=== PATIENT | female | born 1940 | race Caucasian/White ===

== ENCOUNTER 2023-02-17 21:25 | Emergency (ER) | payer OTHER, MEDICAID ==
[~2023-02-17] VITALS: Ht 167.6 cm; Wt 65.8 kg
[2023-02-17 22:10] VITALS: BP_SYST 143; PULSE 90; RESP 18; TEMP 98.2; O2SAT 97
[2023-02-17 22:40] LABS: BILIRUBIN,URINE NEGATIVE (NEGATIVE); BLOOD, URINE 3+ (NEGATIVE); CLARITY/URINE CLOUDY (CLEAR); COLOR,URINE YELLOW (YELLOW); GLUCOSE,URINE NEGATIVE (NEGATIVE); KETONES,URINE NEGATIVE (NEGATIVE); LEUKOCYTE ESTERASE ,URINE 3+ (NEGATIVE); NITRITE, URINE NEGATIVE (NEGATIVE); PROTEIN URINE 2+ (NEGATIVE); UROBILINOGEN,URINE 0.2 (0.2-1.0)
[2023-02-17 22:51] LABS: BACTERIA,URINE MODERATE /HPF (None Seen); RBC,URINE 50-80 /HPF (0-3); WBC,URINE 20-50 /HPF (0-3)
[2023-02-17 23:12] LABS: BASOPHILS # (AUTO) 0.1 K/uL (0.0-0.2); BASOPHILS % (AUTO) 0.6 % (0.0-2.0); EOSINOPHILS # (AUTO) 0.2 K/uL (0.0-0.4); EOSINOPHILS % (AUTO) 1.8 % (0.0-4.0); HEMATOCRIT 42.7 % (36-48); HEMOGLOBIN 13.8 g/dL (12.0-16.0); LYMPHOCYTES # (AUTO) 1.8 K/uL (1.0-5.5); LYMPHOCYTES % (AUTO) 16.4 % (20.5-51.5); MEAN CORPUSCULAR HEMOGLOBIN 30 pg (27-31); MEAN CORPUSCULAR HGB CONC 32 % (32-36); MEAN CORPUSCULAR VOLUME 93 fL (79.0-98.0); MONOCYTES # (AUTO) 0.6 K/uL (0.0-1.0); MONOCYTES % (AUTO) 5.5 % (1.7-9.3); NEUTROPHILS # (AUTO) 8.1 K/uL (1.8-7.7); NEUTROPHILS % (AUTO) 75.7 % (40.0-70.0); PLATELET COUNT (AUTO) 246 K/uL (130-430); RED CELL DISTRIBUTION WIDTH 14.7 % (9.0-15.0); WHITE BLOOD COUNT (AUTO) 10.7 K/uL (4.8-10.8)
[2023-02-17 23:24] LABS: ANION GAP 6 (5-15); CALCIUM 10.1 mg/dL (8.4-11.0); CARBON DIOXIDE 27 mmol/L (23-29); CHLORIDE 100 mmol/L (98-107); CREATININE 0.97 mg/dL (0.55-1.30); GLUCOSE 121 mg/dL (74-106); POTASSIUM 3.6 mmol/L (3.5-5.1); SODIUM SERUM 133 mmol/L (136-145); UREA NITROGEN, BLOOD 19 mg/dL (8-21)
[2023-02-18] MEDS ORDERED: CEPH250C PO (00:58)
[2023-02-18] MEDS ORDERED: cephALEXin 500 MG CAPSULE PO ONE (01:00)
== END 2023-02-18 01:10 | disposition home or self-care (01) ==
LOC: SED 21:25
DX: N39.0 Urinary tract infection, site not specified (principal); R31.9 Hematuria, unspecified; R19.00 Intra-abdominal and pelvic swelling, mass and lump, unspecified site
CPT/HCPCS: 36415; 76376; 80048; 81000; 81001; 81015; 85025; 87086; 99284

== ENCOUNTER 2023-06-02 12:55 | Emergency (ER) | payer OTHER, MEDICAID ==
[~2023-06-02] VITALS: Ht 167.6 cm; Wt 63.5 kg
[~2023-06-02 12:55] MED LIST: CEPH250C PO
[2023-06-02 13:10] VITALS: BP_SYST 138; PULSE 90; RESP 18; TEMP 97.8; O2SAT 97
[2023-06-02] MEDS ORDERED: DOCU-156 PO (13:29)
[2023-06-02] MEDS ORDERED: PANT40TA45 PO (13:29)
[2023-06-02] MEDS ORDERED: ATOV750O4 PO (13:29)
[2023-06-02] MEDS ORDERED: LEVE500T21 PO (13:29)
[2023-06-02 13:42] LABS: HEMATOCRIT 35.2 % (36-48); HEMOGLOBIN 12.1 g/dL (12.0-16.0); LYMPHOCYTES # (AUTO) 0.3 K/uL (1.0-5.5); LYMPHOCYTES % (AUTO) 6.6 % (20.5-51.5); MEAN CORPUSCULAR HEMOGLOBIN 32 pg (27-31); MEAN CORPUSCULAR HGB CONC 35 % (32-36); MEAN CORPUSCULAR VOLUME 92 fL (79.0-98.0); MONOCYTES # (AUTO) 0.1 K/uL (0.0-1.0); MONOCYTES % (AUTO) 2.1 % (1.7-9.3); NEUTROPHILS # (AUTO) 4.8 K/uL (1.8-7.7); NEUTROPHILS % (AUTO) 91.3 % (40.0-70.0); PLATELET COUNT (AUTO) 208 K/uL (130-430); RED BLOOD CELL COUNT(AUTO) 3.82 MIL/uL (4.2-6.2); WHITE BLOOD COUNT (AUTO) 5.2 K/uL (4.8-10.8)
[2023-06-02 14:33] LABS: ALANINE AMINOTRANSFERASE 58 U/L (12-78); ALBUMIN 2.2 g/dL (3.4-4.8); ANION GAP 12 (5-15); ASPARTATE AMINOTRANSFERASE 90 U/L (10-37); BILIRUBIN,DIRECT 0.6 mg/dL (0.0-0.3); CALCIUM 8.7 mg/dL (8.4-11.0); CARBON DIOXIDE 21 mmol/L (23-29); CHLORIDE 96 mmol/L (98-107); CREATININE 0.81 mg/dL (0.55-1.30); GLUCOSE 118 mg/dL (74-106); SODIUM SERUM 129 mmol/L (136-145); TOTAL BILIRUBIN 1.2 mg/dL (0.0-1.0); TOTAL PROTEIN, SERUM 5.9 g/dL (6.4-8.3); UREA NITROGEN, BLOOD 16 mg/dL (8-21)
[2023-06-02 14:36] LABS: POTASSIUM 2.7 mmol/L (3.5-5.1)
[2023-06-02] MEDS: levETIRAcetam 1,000 MG IV BAG 100 ML IV ONE (15:06)
[2023-06-02 15:18] LABS: INR 1.1 (0.8-1.2); PROTHROMBIN TIME 10.9 SECS (9.5-12.5)
[2023-06-02 15:39] LABS: BILIRUBIN,URINE NEGATIVE (NEGATIVE); BLOOD, URINE 3+ (NEGATIVE); COLOR,URINE YELLOW (YELLOW); GLUCOSE,URINE 1+ (NEGATIVE); KETONES,URINE 1+ (NEGATIVE); LEUKOCYTE ESTERASE ,URINE TRACE (NEGATIVE); NITRITE, URINE NEGATIVE (NEGATIVE); PROTEIN URINE 1+ (NEGATIVE)
[2023-06-02 15:41] LABS: CLARITY/URINE HAZY (CLEAR)
[2023-06-02] MEDS: KCL 20 mEq in 100 mL (PREMIX) 100 ML IV ONE (15:42)
[2023-06-02 15:50] LABS: BACTERIA,URINE RARE /HPF (None Seen); HYALINE CASTS, URINE 0-10 /LPF (None Seen); MUCUS,URINE 1+ /LPF (None Seen); WBC,URINE 0-3 /HPF (0-3)
[2023-06-02] MEDS: ONDANSETRON HCL 4 MG/2 ML VIAL IVP ONE (19:51)
[2023-06-02] MEDS ORDERED: MANNITOL 25%(12.5gm),50ML VIAL 50 ML ONE (20:16)
[2023-06-02] MEDS: MANNITOL 25% 12.5GM/50 ML VIAL IVP ONE (20:22)
[2023-06-02] MEDS: levETIRAcetam 500 MG IV PREMIX 100 ML IV ONE (20:45)
[2023-06-03 00:23] VITALS: BP_SYST 164; PULSE 88; RESP 12; TEMP 98.8; O2SAT 97
== END 2023-06-03 01:12 | disposition short-term general hospital (02) ==
LOC: SED 12:55
DX: I69.014 Frontal lobe and executive function deficit following nontraumatic subarachnoid hemorrhage (principal); R53.1 Weakness; M25.562 Pain in left knee; I10 Essential (primary) hypertension; Z88.6 Allergy status to analgesic agent; Z85.9 Personal history of malignant neoplasm, unspecified; Z79.899 Other long term (current) drug therapy; Z20.822 Contact with and (suspected) exposure to COVID-19
CPT/HCPCS: 99285; 96365; 70450; 96375; 96367; 96366; 87426; 80076; 80048; 81000; 81001; 85025; 85610; 85730; 87086; 36415; 73560; 81015; J2405; J3480; J1953; J2150